=== PATIENT | female | born 1965 | race Caucasian/White ===

== ENCOUNTER 2017-06-11 09:53 | Day surgery (SDC) | payer MEDICAID ==
[~2017-06-11] VITALS: Ht 170.2 cm; Wt 75.7 kg
[2017-06-11] MEDS ORDERED: [UNRECOGNIZED DRUG - REMARK] (10:30)
[2017-06-11] MEDS ORDERED: ATOR10TA51 PO (10:30)
[2017-06-11] MEDS ORDERED: fentaNYL 0.05 MG/ML VIAL ONE (11:21)
[2017-06-11] MEDS ORDERED: LIDOCAINE 2% 100 MG/5 ML UJET TP ONE (11:22)
== END 2017-06-11 12:30 | disposition home or self-care (01) ==
LOC: MDS 09:53
PROVIDERS: ATTEND Internal Medicine Gastroenterology
DX: K57.30 Diverticulosis of large intestine without perforation or abscess without bleeding (principal); E66.3 Overweight; Z68.26 Body mass index [BMI] 26.0-26.9, adult; Z87.891 Personal history of nicotine dependence; Z80.0 Family history of malignant neoplasm of digestive organs; Z72.89 Other problems related to lifestyle; Z98.890 Other specified postprocedural states
CPT/HCPCS: J3010